=== PATIENT | female | born 1940 | race Caucasian/White ===

== ENCOUNTER 2018-04-11 15:05 | Emergency (ER) | payer OTHER, MEDICARE ==
[~2018-04-11] VITALS: Ht 157.5 cm; Wt 59.0 kg
--- NOTE | 2018-04-11 15:05 | NUR ---
[facility]
--- NOTE | 2018-04-11 15:19 | NUR ---
ER at bedside examining patient.
--- NOTE | 2018-04-11 15:19 | NUR ---
patient AOx4 arriving via BLS for a wellness check. patient was found in her call sleeping in her car with a flat tire. patient has a hx of narcolesy. no other complaint or injury at this time.
[2018-04-11 15:23] VITALS: BP_SYST 155
[2018-04-11] MEDS ORDERED: NS 500 ML IV ONE (15:30)
[2018-04-11 15:39] LABS: BASOPHILS % (AUTO) 0.5 % (0.0-2.0); EOSINOPHILS # (AUTO) 0.6 K/uL (0.0-0.4); EOSINOPHILS % (AUTO) 11.6 % (0.0-4.0); HEMATOCRIT 40.2 % (36-48); HEMOGLOBIN 13.8 g/dL (12.0-16.0); LYMPHOCYTES # (AUTO) 1.5 K/uL (1.0-5.5); LYMPHOCYTES % (AUTO) 29.2 % (20.5-51.5); MEAN CORPUSCULAR HEMOGLOBIN 33 pg (27-31); MEAN CORPUSCULAR HGB CONC 34 % (32-36); MEAN CORPUSCULAR VOLUME 96 fL (79.0-98.0); MONOCYTES # (AUTO) 0.6 K/uL (0.0-1.0); NEUTROPHILS # (AUTO) 2.6 K/uL (1.8-7.7); NEUTROPHILS % (AUTO) 46.7 % (40.0-70.0); PLATELET COUNT (AUTO) 263 K/uL (130-430); RED BLOOD CELL COUNT(AUTO) 4.21 MIL/uL (4.2-6.2); RED CELL DISTRIBUTION WIDTH 11.7 % (9.0-15.0); WHITE BLOOD COUNT (AUTO) 5.3 K/uL (4.8-10.8)
[2018-04-11 15:48] LABS: ANION GAP 9 (5-15); CALCIUM 9.2 mg/dL (8.4-11.0); CHLORIDE 101 mmol/L (98-107); CREATININE 0.86 mg/dL (0.55-1.30); GLUCOSE 86 mg/dL (70-99); POTASSIUM 3.8 mmol/L (3.5-5.1); SODIUM SERUM 136 mmol/L (136-145); UREA NITROGEN, BLOOD 20 mg/dL (8-21)
[2018-04-11 15:51] LABS: PROTHROMBIN TIME 10.4 SECS (9.5-12.5)
[2018-04-11 15:52] LABS: ALANINE AMINOTRANSFERASE 19 U/L (12-78); ALBUMIN 3.8 g/dL (3.4-4.8); ASPARTATE AMINOTRANSFERASE 15 U/L (10-37); TOTAL BILIRUBIN 0.2 mg/dL (0.0-1.0)
--- NOTE | 2018-04-11 16:00 | NUR ---
patient refused fluids once returned from RD. patient does not know why she is here. explained situation and notified MD.
--- NOTE | 2018-04-11 16:13 | NUR ---
patient appears to be dizzy and unable to stand on her own. notified MD. called [phone] [facility] for pickup.
--- NOTE | 2018-04-11 16:13 | NUR ---
Patient given written and verbal discharge instructions and verbalizes understanding. ER MD discussed with patient the results and treatment provided. Patient in stable condition. ID arm band removed. No Rx given. Patient educated on pain management and to follow up with PMD. Pain Scale 0/10. Opportunity for questions provided and answered. Medication side effect fact sheet provided.
--- NOTE | 2018-04-11 16:30 | NUR ---
patient given juice, patient unable to hold cup in her hand.
[2018-04-12] MEDS ORDERED: MODA100T53 PO (00:59)
[2018-04-12] MEDS ORDERED: AMLO5TAB4 PO (00:59)
[2018-04-12] MEDS ORDERED: LEVO75TA7 PO (00:59)
[2018-04-12] MEDS ORDERED: TRIA1TAB96 PO (00:59)
[2018-04-12] MEDS ORDERED: ZOLP5TAB2 PO (00:59)
[2018-04-12] MEDS ORDERED: CARV12.548 PO (01:00)
== END 2018-04-11 16:12 | disposition home or self-care (01) ==
LOC: SED 15:05
DX: R55 Syncope and collapse (principal); R03.0 Elevated blood-pressure reading, without diagnosis of hypertension
CPT/HCPCS: 36415; 70450; 80053; 82962; 85025; 85610; 93005; 99284; J7040

== ENCOUNTER 2018-04-11 20:44 | Inpatient (IN) | payer OTHER, MEDICARE ==
[~2018-04-11] VITALS: Ht 157.5 cm; Wt 62.3 kg
[2018-04-11 20:55] VITALS: BP_SYST 161
[2018-04-11 23:25] LABS: BILIRUBIN,URINE NEGATIVE (NEGATIVE); CLARITY/URINE CLEAR (CLEAR); COLOR,URINE YELLOW (YELLOW); GLUCOSE,URINE NEGATIVE (NEGATIVE); KETONES,URINE NEGATIVE (NEGATIVE); LEUKOCYTE ESTERASE ,URINE 1+ (NEGATIVE); NITRITE, URINE NEGATIVE (NEGATIVE); PROTEIN URINE NEGATIVE (NEGATIVE); UROBILINOGEN,URINE 0.2 (0.2-1.0)
[2018-04-11 23:30] LABS: BLOOD, URINE TRACE (NEGATIVE)
[2018-04-11 23:33] LABS: BACTERIA,URINE FEW /HPF (None Seen); BASOPHILS % (AUTO) 0.3 % (0.0-2.0); EOSINOPHILS # (AUTO) 0.7 K/uL (0.0-0.4); EOSINOPHILS % (AUTO) 11.1 % (0.0-4.0); HEMATOCRIT 43.2 % (36-48); HEMOGLOBIN 14.9 g/dL (12.0-16.0); LYMPHOCYTES # (AUTO) 1.8 K/uL (1.0-5.5); LYMPHOCYTES % (AUTO) 29.5 % (20.5-51.5); MEAN CORPUSCULAR HEMOGLOBIN 33 pg (27-31); MEAN CORPUSCULAR HGB CONC 35 % (32-36); MEAN CORPUSCULAR VOLUME 96 fL (79.0-98.0); MONOCYTES # (AUTO) 0.7 K/uL (0.0-1.0); MONOCYTES % (AUTO) 11.2 % (1.7-9.3); NEUTROPHILS % (AUTO) 47.9 % (40.0-70.0); PLATELET COUNT (AUTO) 272 K/uL (130-430); RED BLOOD CELL COUNT(AUTO) 4.49 MIL/uL (4.2-6.2); RED CELL DISTRIBUTION WIDTH 11.6 % (9.0-15.0); WHITE BLOOD COUNT (AUTO) 6.2 K/uL (4.8-10.8)
[2018-04-11 23:48] VITALS: BP_SYST 150
[2018-04-11 23:57] LABS: ANION GAP 10 (5-15); CALCIUM 9.7 mg/dL (8.4-11.0); CHLORIDE 101 mmol/L (98-107); CREATININE 0.83 mg/dL (0.55-1.30); GLUCOSE 97 mg/dL (70-99); POTASSIUM 4.3 mmol/L (3.5-5.1); SODIUM SERUM 139 mmol/L (136-145); UREA NITROGEN, BLOOD 17 mg/dL (8-21)
[2018-04-12 00:04] LABS: ALANINE AMINOTRANSFERASE 19 U/L (12-78); ASPARTATE AMINOTRANSFERASE 17 U/L (10-37); TOTAL BILIRUBIN 0.3 mg/dL (0.0-1.0)
[2018-04-12 00:08] LABS: PROTHROMBIN TIME 10.4 SECS (9.5-12.5)
[2018-04-12 00:53] VITALS: BP_SYST 150
[2018-04-12] MEDS ORDERED: MODA100T53 PO (00:59)
[2018-04-12] MEDS ORDERED: TRIA1TAB96 PO (00:59)
[2018-04-12] MEDS ORDERED: LEVO75TA7 PO (00:59)
[2018-04-12] MEDS ORDERED: ZOLP5TAB2 PO (00:59)
[2018-04-12] MEDS ORDERED: AMLO5TAB4 PO (00:59)
[2018-04-12] MEDS ORDERED: CARV12.548 PO (01:00)
[2018-04-12 08:00] VITALS: BP_SYST 152
[2018-04-12] MEDS ORDERED: ASPIRIN 81 MG TAB.CHEW PO SCH (09:00)
[2018-04-12] MEDS ORDERED: CARVEDILOL 6.25 MG TABLET (COREG) PO SCH (09:00)
[2018-04-12 11:22] VITALS: BP_SYST 113
[2018-04-12] MEDS ORDERED: ZOLPIDEM TARTRATE 5 MG TABLET PO PRN (12:00)
[2018-04-12 12:36] VITALS: BP_SYST 113
[2018-04-12] MEDS ORDERED: CARVEDILOL 12.5 MG TABLET (COREG) PO SCH (21:00)
[2018-04-13] MEDS ORDERED: MODAFINIL 100 MG TABLET (PROVIGIL) PO SCH (07:00)
[2018-04-13] MEDS ORDERED: LEVOTHYROXINE SODIUM 0.075 MG TABLET PO SCH (07:00)
[2018-04-13] MEDS ORDERED: ENOXAPARIN SODIUM 40 MG/0.4 ML SYRINGE SUBCUT SCH (09:00)
== END 2018-04-12 14:13 | disposition home or self-care (01) | DRG 69 ==
LOC: SED 20:44 → STU 22:44
PROVIDERS: ADMIT Family Medicine; ATTEND Family Medicine
DX: G45.9 Transient cerebral ischemic attack, unspecified (principal); E11.9 Type 2 diabetes mellitus without complications; I10 Essential (primary) hypertension; E03.9 Hypothyroidism, unspecified; M19.90 Unspecified osteoarthritis, unspecified site; Z98.41 Cataract extraction status, right eye; Z98.42 Cataract extraction status, left eye
CPT/HCPCS: 36415; 70450-TC; 71045; 80053; 81000-TC; 82550-TC; 82962; 84484; 85025; 85610-TC; 93005; 99285; G0378; J7040

== ENCOUNTER 2021-12-10 02:24 | Inpatient (IN) | payer OTHER, MEDICARE ==
[~2021-12-10] VITALS: Ht 160 cm; Wt 52.2 kg
[~2021-12-10 02:24] MED LIST: AMLO5TAB4 PO; CARV12.548 PO; LEVO75TA7 PO; MODA100T53 PO; TRIA1TAB96 PO; ZOLP5TAB2 PO
--- NOTE | 2021-12-10 02:40 | NUR ---
PT RECEIVED VIA EMS TO ED. S/P NEAR FALL AT HOME, AFTER TAKING AMBIEN SLEEPING PILSS. FAMILY BECAME CONCERNED PT WAS HAVING A STROKE. PER DTR PT W/ A HX OF AFIB. DR CUNNINGHAM AT BEDSIDE.
--- NOTE | 2021-12-10 02:50 | NUR ---
PT TO CT SCAN FOR HEAD CT.
[2021-12-10] MEDS ORDERED: NS 500 ML IV ONE (03:30)
--- NOTE | 2021-12-10 03:30 | NUR ---
PT ASLEEP W/ EASY AROUSAL, YET VERY SLEEPY. DAUGHTER AT BEDSIDE.
[2021-12-10 04:24] LABS: BASOPHILS % (AUTO) 0.5 % (0.0-2.0); EOSINOPHILS # (AUTO) 0.3 K/uL (0.0-0.4); EOSINOPHILS % (AUTO) 4.3 % (0.0-4.0); HEMATOCRIT 36.4 % (36-48); LYMPHOCYTES # (AUTO) 1.1 K/uL (1.0-5.5); LYMPHOCYTES % (AUTO) 13.8 % (20.5-51.5); MEAN CORPUSCULAR VOLUME 93 fL (79.0-98.0); MONOCYTES # (AUTO) 0.8 K/uL (0.0-1.0); MONOCYTES % (AUTO) 10.3 % (1.7-9.3); NEUTROPHILS # (AUTO) 5.5 K/uL (1.8-7.7); NEUTROPHILS % (AUTO) 71.1 % (40.0-70.0); PLATELET COUNT (AUTO) 217 K/uL (130-430); RED BLOOD CELL COUNT(AUTO) 3.93 MIL/uL (4.2-6.2); RED CELL DISTRIBUTION WIDTH 12.8 % (9.0-15.0); WHITE BLOOD COUNT (AUTO) 7.7 K/uL (4.8-10.8)
[2021-12-10 04:45] LABS: ACETAMINOPHEN 3 ug/mL (1-30); ALANINE AMINOTRANSFERASE 22 U/L (12-78); ALBUMIN 3.9 g/dL (3.4-4.8); ASPARTATE AMINOTRANSFERASE 17 U/L (10-37); CHLORIDE 103 mmol/L (98-107); GLUCOSE 95 mg/dL (70-99); TOTAL BILIRUBIN 0.3 mg/dL (0.0-1.0)
[2021-12-10 04:46] LABS: ANION GAP 11 (5-15); CREATININE 1.06 mg/dL (0.55-1.30); POTASSIUM 3.6 mmol/L (3.5-5.1); UREA NITROGEN, BLOOD 33 mg/dL (8-21)
[2021-12-10 05:05] LABS: ALCOHOL, BLOOD < 3 mg/dL (<10)
[2021-12-10 05:06] LABS: INR 1.2 (0.8-1.2); PROTHROMBIN TIME 11.8 SECS (9.5-12.5)
[2021-12-10 05:08] LABS: CORRECTED WHITE BLOOD COUNT 7.7 K/uL (4.5-11.0)
[2021-12-10 05:44] LABS: ALCOHOL, BLOOD < 3 mg/dL (<10)
[2021-12-10 05:47] VITALS: BP_SYST 100
--- NOTE | 2021-12-10 06:25 | NUR ---
ADMIT ORDERS RECEIVED FROM Mari YEN FOR ADMIT TO TELE.
[2021-12-10 06:41] LABS: FREE T4 (FREE THYROXINE) 1.2 ng/dl (0.8-1.5); THYROID STIMULATING HORMONE 0.31 uIu/mL (0.36-3.74)
--- NOTE | 2021-12-10 06:50 | NUR ---
Admit bed requested Patient will be admitted to care of Dr. Mari Mohr Admitted to Tele unit. Diagnosis Near Syncope Inpatient - Yes Orientation concerns or request close to nursing station - Yes Covid Status - Pending On vent or bipap - no Isolation requirements no Needs a sitter no From Home-Yes Requires Dialysis - No Med Rec No, fam does know meds, pt asleep.
[2021-12-10 08:16] LABS: BILIRUBIN,URINE NEGATIVE (NEGATIVE); BLOOD, URINE 1+ (NEGATIVE); COLOR,URINE YELLOW (YELLOW); GLUCOSE,URINE NEGATIVE (NEGATIVE); KETONES,URINE NEGATIVE (NEGATIVE); LEUKOCYTE ESTERASE ,URINE 2+ (NEGATIVE); NITRITE, URINE POSITIVE (NEGATIVE); PROTEIN URINE NEGATIVE (NEGATIVE); UROBILINOGEN,URINE 0.2 (0.2-1.0)
[2021-12-10 08:17] LABS: CLARITY/URINE HAZY (CLEAR)
[2021-12-10 08:21] LABS: BARBITURATE, URINE NEGATIVE (NEG <=200); BENZODIAZEPINE, URINE NEGATIVE (NEG <=150); CANNABINOID, URINE NEGATIVE (NEG <=50); COCAINE, URINE NEGATIVE (NEG <=150); METHAMPHETAMINES SCREEN,URINE NEGATIVE (NEG <=500); OPIATE, URINE NEGATIVE (NEG <=100); PHENCYCLIDINE SCREEN,URINE NEGATIVE (NEG <=25); UR TRICYCLIC ANTIDEPRESSANTS NEGATIVE (NEG <=300); URINE AMPHETAMINE NEGATIVE (NEG <=500); URINE METHADONE NEGATIVE (NEG <=200); URINE OXYCODONE SCREEN NEGATIVE (NEG <=100); URINE PROPOXYPHENE SCREEN NEGATIVE (NEG <=300)
[2021-12-10 08:33] LABS: BACTERIA,URINE MODERATE /HPF (None Seen)
[2021-12-10 08:35] VITALS: BP_SYST 125
--- NOTE | 2021-12-10 08:37 | NUR ---
Patient does not wish to proceed with medical care recommended by MIAN AND DR CHACON. Patient given information related to possible complications, up to and including , which could occur as a result of leaving hospital at this time. Patient verbalizes understanding of risks involved leaving against medical advice. Patient has signed AMA form.
--- NOTE | 2021-12-10 08:42 | NUR ---
ATTEMPTED TO CONTACT DR. WADE REGARDING PT AMA. NO ANSWER, LEFT MESSAGE
== END 2021-12-10 08:42 | disposition left against medical advice (07) | DRG 312 ==
LOC: SED 02:24 → STU 06:20
PROVIDERS: ADMIT Student in an Organized Health Care Education/Training Program; ATTEND Student in an Organized Health Care Education/Training Program
DX: R55 Syncope and collapse (principal); R41.82 Altered mental status, unspecified; I10 Essential (primary) hypertension; E78.5 Hyperlipidemia, unspecified; E07.9 Disorder of thyroid, unspecified; Z20.822 Contact with and (suspected) exposure to COVID-19
CPT/HCPCS: 36415; 70450-TC; 71045; 76376; 80053; 80307; 81000; 82962; 83605; 84439; 84443; 84484; 85025; 85610-TC; 85730-TC; 87040; 87086; 93005; 96360; 99285; G0378; G0480; G0482